=== PATIENT | female | born 1950 | race African-American/Black ===

== ENCOUNTER 2016-10-16 07:25 | Inpatient (IN) | payer OTHER ==
[2016-10-10 10:00] LABS: HEMATOCRIT 30.7 % (36.0-48.0); HEMOGLOBIN 9.8 g/dL (12.0-16.0)
[2016-10-10 10:26] LABS: BUN (BLOOD UREA NITROGEN) 29 MG/DL (6-23); CALCIUM, SERUM 8.7 MG/DL (8.5-10.4); CHLORIDE, SERUM 107 MMOL/L (96-112); CO2 (CARBON DIOXIDE) 28 MMOL/L (24-34); CREATININE 1.37 MG/DL (0.55-1.02); GFR AFRICAN AMERICAN 46 ML/MIN (>=60); GFR NON AFRICAN AMERICAN 40 ML/MIN (>=60); GLUCOSE, SERUM 104 MG/DL (60-99); POTASSIUM, SERUM 4.4 MMOL/L (3.5-5.3); SODIUM, SERUM 143 MMOL/L (135-148)
--- NOTE | ~2016-10-16 | PREOPHP ---
PreOp History and Physical [place] [id number] [facility] [place]. [address] NAME: JOSE NAGEL : 46 STATUS : ADM IN PAT#: [id number] AGE: 66 ADM/REG DATE : 10/16/16 MR#: [id number] REPORT SERV DATE: 10/16/16 DICTATED BY: BRANDON CHAPARRO DATE: 10/16/16 REPORT STATUS : Draft TRANSCRIBED BY: SHRUTHI DATE: 10/16/16 CHIEF COMPLAINT: Back pain and bilateral lower extremity pain, paresthesias, and weakness, right greater than left. HISTORY OF PRESENT ILLNESS: The patient is a 66-year-old with intractable back and lower extremity pain bilaterally. She feels weakness. Her legs will give out with walking, has difficulty with ambulating. After discussion of risks and benefits, she elected to proceed with surgical intervention. REVIEW OF SYSTEMS: She denies chest pain, shortness of breath, and bowel or bladder changes. ALLERGIES: DENIED. HOME MEDICATIONS: Include Advair, Amitiza, aspirin, Dexilant, digoxin, fluticasone, hydroxyzine, Neurontin, [place], omeprazole, oxybutynin, pravastatin, Symbicort, tolterodine tartrate, topiramate, valsartan, hydrochlorothiazide, Ventolin. FAMILY HISTORY: Noncontributory. PAST MEDICAL HISTORY: Osteoarthritis, rheumatoid arthritis, hypertension, depression, hypoglycemia, high cholesterol, osteoporosis, gastroesophageal reflux, asthma, and sleep apnea. PHYSICAL EXAMINATION: VITALS: Height 5 feet 3 inches, weight 246, BMI 43.6. GENERAL: Patient is healthy appearing, somewhat over ideal body weight. PSYCH: Alert and oriented x3. Normal mood and affect. Gait is antalgic, somewhat unsteady. VASCULAR: No extremity swelling. SPINE: Decreased motion. Well-healed previous microdiscectomy scar. HEART: Regular rate and rhythm. LUNGS: Clear to auscultation. ABDOMEN: Soft, nontender, nondistended with good bowel sounds. BREASTS: Deferred. RECTAL: Deferred. NEUROLOGIC: Strength is 4/5 for bilateral lower extremities diffusely. IMAGING: I have reviewed the preoperative imaging studies. She does have a dynamic instability with spondylolisthesis at L4-L5. She has L4-S1 disc disease and stenosis with recurrent disc herniation. ASSESSMENT: Lumbar radiculopathy, dynamic instability with spondylolisthesis L4-5, recurrent disc herniation and degenerative disc disease with stenosis, L4 through S1, failed conservative treatment. PLAN: The patient presents for surgical intervention. Consent was obtained. All questions PreOp History and Physical [address] [address] NAME: JOSE NAGEL : 48 STATUS : ADM IN PAT#: [id number] AGE: 66 ADM/REG DATE : 10/16/16 MR#: [id number] REPORT SERV DATE: 10/16/16 DICTATED BY: BRANDON CHAPARRO DATE: 10/16/16 REPORT STATUS : Draft TRANSCRIBED BY: MODL DATE: 10/16/16 answered. She is ready to proceed. YULIA/SHRUTHI Brandon Chaparro DO / [id number] CC: DO Karishma Coronado M.D.
--- NOTE | ~2016-10-16 | OP ---
Record Of Operation [facility] [address] [place]. [address] NAME: JOSE NAGEL : 46 STATUS : ADM IN PAT#: [id number] AGE: 66 ADM/REG DATE : 10/16/16 MR#: [id number] REPORT SERV DATE: 10/16/16 DICTATED BY: BRANDON CHAPARRO DATE: 10/16/16 REPORT STATUS : Draft TRANSCRIBED BY: MODL DATE: 10/16/16 DATE OF PROCEDURE: 10/16/2016 PREOPERATIVE DIAGNOSES: 1. L4-5 spondylolisthesis. 2. L4-S1 disk disease and stenosis. 3. Lumbar radiculopathy. POSTOPERATIVE DIAGNOSES: 1. L4-5 spondylolisthesis. 2. L4-S1 disk disease and stenosis. 3. Lumbar radiculopathy. PROCEDURES: 1. L4 through S1 open laminectomy and bilateral foraminotomies. 2. Decompression of L4-S1 nerve roots bilaterally. 3. L4-S1 posterolateral fusion bilaterally. 4. L4-S1 posterior segmental spinal instrumentation using Medtronic pedicle screws. 5. Local morcellized autograft and allograft bone matrix. 6. Neuromonitoring. 7. Intraoperative O-arm CT scan with computer navigation. SURGEON: Brandon Chaparro DO. ANESTHESIA: General. ESTIMATED BLOOD LOSS: 400 mL. COMPLICATIONS: None. INDICATIONS: The patient is a pleasant 66-year-old with intractable back and leg pain, failed multiple attempts at conservative treatment. After discussion of risks and benefits, elected to proceed with surgery. DESCRIPTION OF PROCEDURE: I identified the patient in the holding area. Consent was obtained. Went to the operating room. Underwent general anesthesia with endotracheal intubation. Prepped and draped in the usual sterile fashion. Operative safety pause was performed, then we proceeded. A midline longitudinal incision was made at L4-S1 taken down the fascial layer. Paraspinous muscle was subperiosteally elevated to the tips of the transverse processes. Self-retaining retractors were placed. O-arm registration frame was placed on the spinous process. O-arm was brought in for intraoperative CT scan. Computer registration materials were verified. Under computer guidance, pedicle screws from Medtronic were placed at L4 through S1 bilaterally. O-arm was brought back in to verify good placement of instrumentation. Rongeur was then used to remove the spinous processes and underlying lamina, Kerrison removed remaining lamina, performed foraminotomies L4 through S1. Partial facetectomy. The L4-S1 nerve roots were free of compression at the end Record Of Operation [address] [address] NAME: JOSE NAGEL : 48 STATUS : ADM IN PAT#: [id number] AGE: 66 ADM/REG DATE : 10/16/16 MR#: [id number] REPORT SERV DATE: 10/16/16 DICTATED BY: BRANDON CHAPARRO DATE: 10/16/16 REPORT STATUS : Draft TRANSCRIBED BY: MODL DATE: 10/16/16 of the case bilaterally. Rods were contoured to appropriate shape and length, placed over the screws L4-S1. Set screws were placed and final tightened. On the right side, distraction was applied across the screws to open the foramen where there was severe foraminal vertical height loss. A high-speed decorticating josh was used to decorticate the remaining bony surfaces L4 through S1. Irrigation was performed. Hemostasis was achieved. Local morcellized autograft and allograft bone matrix were packed over the decorticated surfaces L4 through S1 bilaterally. Subfascial drain was placed. A gram of vancomycin powder was sprinkled over the surgical wound. Layered closure was performed. Sterile dressings were applied. The patient was awoken and extubated, and taken to the recovery room in stable condition. OPERATIVE FINDINGS: L4-S1 disk disease and stenosis. No sustained neuromonitoring alerts. YULIA/SHRUTHI Brandon Chaparro DO / [id number] CC: Brandon Chaparro DO
--- NOTE | ~2016-10-16 | CN ---
Consultation Report [facility] [address] [place]. [address] NAME: JOSE NAGEL : 46 STATUS : ADM IN [facility]#: [id number] AGE: 66 ADM/REG DATE : 10/16/16 MR#: [id number] REPORT SERV DATE: 10/16/16 DICTATED BY: NEMESIO RIVERO DATE: 10/16/16 REPORT STATUS : Draft TRANSCRIBED BY: MODL DATE: 10/16/16 CONSULTATION DATE OF CONSULTATION: 10/16/2016 REASON FOR ADMISSION: L-spine surgery. REASON FOR CONSULTATION: Hypertension. HISTORY OF PRESENT ILLNESS: Ms. Nagel is a 66-year-old female with hypertension, rheumatoid arthritis, anemia, asthma, who had radiculopathy of the right lower extremity, found to have L5-S1 stenosis, was admitted for decompression. She had a three-hour operation under general anesthetic. Estimated blood loss of 400 mL. Vital signs are stable perioperatively. PACU course was unremarkable, but we were consulted for hypertension postoperatively. 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 She feels like the reticular pain in her leg is actually somewhat better than it was preoperatively. Denies any headache. No chest pain. No pulmonary complaints. No gastrointestinal complaints. No genitourinary complaints. No bleeding, history of hematochezia or melena. Joints are okay as well. Remainder of review of systems are negative. PAST MEDICAL HISTORY: As mentioned above. PAST SURGICAL HISTORY: Bilateral total knee arthroplasty in the past. MEDICATIONS: Include Diovan HCT, Protonix, Topamax, Dulera, Sanctura, Amitiza, Prevacid, Advair, Xolair, and albuterol. ALLERGIES: WASP VENOM. FAMILY HISTORY: Positive for COPD, cancer, or heart disease. SOCIAL HISTORY: The patient denies tobacco, alcohol, or drugs. PHYSICAL EXAMINATION: VITAL SIGNS: On presentation, blood pressure 106/72, pulse 58, respiration 14, afebrile, and O2 of 98% on exa. GENERAL: Awake, alert, and oriented x3. No apparent distress. HEENT: Pupils are equal and reactive to light. Extraocular movements are intact. No cranial nerve deficits. Moist mucous membranes. Normal oropharynx. NECK: Revealed no jugular venous distention, carotid bruits, lymphadenopathy, or goiter. CARDIAC: Regular rate and rhythm. No murmurs, gallops, or rubs. LUNGS: Clear to auscultation bilaterally with good respiratory excursion. ABDOMEN: Nondistended, nontender. Bowel sounds normoactive, but obese. Consultation Report [facility] [address] [facility] [place]. [address] NAME: JOSE NAGEL : 46 STATUS : ADM IN PAT#: [id number] AGE: 66 ADM/REG DATE : 10/16/16 MR#: [id number] REPORT SERV DATE: 10/16/16 DICTATED BY: NEMESIO RIVERO DATE: 10/16/16 REPORT STATUS : Draft TRANSCRIBED BY: SHRUTHI DATE: 10/16/16 EXTREMITIES: No cyanosis, clubbing, or edema. Good pulses and capillary refill. She had actually 5 out of 5 strength in bilateral lower extremities. Normal sensory function x4. SKIN: Warm and dry. PSYCHIATRIC: She is appropriate. LABORATORY EVALUATION: Sodium 144, potassium 3.9, chloride 110, bicarb 24, BUN 32, creatinine 1.5, glucose 139. White count 5.5, H and H of 8 and 26, platelets 175, MCV 82. Glucose 92-128. ASSESSMENT AND PLAN: 1. Status post lumbar spine per Dr. Lynn. We should be cautious of acute blood loss anemia on top of her prior microcytic anemia. She may very well require transfusion by tomorrow, and we anticipate iron infusion as well. We will guaiac her stools and determine a course for further evaluation if necessary. 2. Hypertension. Blood pressure is actually currently controlled. We should hold the hydrochlorothiazide while she is on IV fluids perioperatively. Otherwise continue present management. 3. Asthma, stable. Continue present management. 4. Rheumatoid arthritis. The patient has no joint deformities at all. I do not know if this is actually osteoarthritis. She is on no disease modifying antibiotic drugs. We will defer this care to Dr. Christie. Thank you very much. We appreciated the opportunity to assist in the care of this patient. We will follow along with you. KEANU/SHRUTHI Nemesio Rivero M.D. / [id number] CC: DO Karishma Coronado M.D.
--- NOTE | ~2016-10-16 | DS ---
Discharge Summary [facility] [address] [facility] [place]. [address] NAME: JOSE NAGEL : 46 STATUS : DIS IN PAT#: [id number] AGE: 66 ADM/REG DATE : 10/16/16 MR#: [id number] REPORT SERV DATE: 10/31/16 DICTATED BY: BRANDON LYNN DATE: 10/30/16 REPORT STATUS : Draft TRANSCRIBED BY: SHRUTHI DATE: 10/30/16 Data Collection from hospitalization DISCHARGE DIAGNOSES: 1. L4-5 spondylolisthesis. 2. L4-S1 disk disease and stenosis. 3. Lumbar radiculopathy. 4. Hypertension. 5. History of hypoglycemia. 6. Osteoarthritis. 7. Rheumatoid arthritis. 8. Depression. 9. Hypercholesterolemia. 10.Osteoporosis. 11.Gastroesophageal reflux. 12.Asthma. 13.Sleep apnea. CONSULTATIONS: Michelet Magaña M.D. PROCEDURES PERFORMED: L4 through S1 open laminectomy and bilateral foraminotomies, decompression of L4-S1 nerve roots bilaterally, L4-S1 posterolateral fusion bilaterally, L4- S1 posterior segmental spinal instrumentation using Medtronic pedicle screws, local morselized autograft and allograft bone matrix, neuromonitoring, intraoperative O-arm CT scan with computer navigation on 10/16/2016. PATHOLOGY: Lumbar spine repair - fragmented bone cartilage and soft tissue. No evidence was seen of an infectious or neoplastic process. MEDICATIONS: Ventolin two puffs via inhaler as needed, aspirin 325 mg every morning, Flexeril 10 mg every eight hours as needed, EpiPen 0.3 mg IM as needed, Flonase nasal spray two sprays nasally every morning, Advair Diskus one puff via inhaler twice a day, Prevacid 30 mg before breakfast, Amitiza 24 mcg twice a day as needed, Dulera two puffs via inhaler twice a day as needed, Xolair 150 mg subcutaneously every two weeks, Percocet 5/325 one to two tablets every four hours as needed, Detrol LA 4 mg every morning, Topamax 75 mg at bedtime, and Diovan one tablet every morning. CONDITION AT DISCHARGE: Stable. DISPOSITION: The patient was discharged home to be followed by home health care on a regular diet with protein shakes at mealtime and activities as instructed. She would follow up with me two weeks following discharge. HOSPITAL COURSE: This is a 66-year-old female who had intractable back and lower extremity pain bilaterally. She felt weakness. Her legs will give out with walking and she had difficulty ambulating. Treatment options were discussed and it was elected to proceed with surgical intervention. She was admitted to the hospital at this time for further evaluation and treatment. Discharge Summary [place] [id number] [facility] [address] NAME: JOSE NAGEL : 46 STATUS : DIS IN PAT#: [id number] AGE: 66 ADM/REG DATE : 10/16/16 MR#: [id number] REPORT SERV DATE: 10/31/16 DICTATED BY: BRANDON LYNN DATE: 10/30/16 REPORT STATUS : Draft TRANSCRIBED BY: SHRUTHI DATE: 10/30/16 Upon admission, she was taken to the operating room where she underwent the above-mentioned procedure. She tolerated this well, and there were no complications. Postoperatively, she was seen by Dr. Michelet Magaña regarding hypertension. Her blood pressure was currently controlled. Hydrochlorothiazide would be held while she was on IV fluids perioperatively. We were going to be cautious of acute blood loss anemia on top of her prior microcytic anemia. It was felt that she may require transfusion. On postop day #1, her pain was controlled. She was evaluated by Physical Therapy. The Mullins catheter and [employer]CRETE [employer]M [employer]TER [employer] FINISHER were discontinued. She said she was feeling better. IV iron was given. On 10/18/2016, she complained of being lightheaded. She had some slight shortness of breath. Her pain was controlled. We transfused one unit of packed red blood cells. Over the next couple of days, she denied any new complaints. Creatinine remained stable at 1.43. Discharge planning was performed. Her anemia had improved. Protonix was continued as well as Dulera. Valsartan was continued. We encouraged her to mobilize with Physical Therapy. She continued to progress. On 10/22/2016, she was alert and cooperative. Discharge instructions were given. Due to her improved and stable condition, she was discharged home to be followed by home health care with the above-stated instructions. Information collected by: Linda Rivera I submit the above information as my discharge summary. ZAK/SHRUTHI Brandon Lynn DO / [id number] CC: DO Karishma Coronado M.D.
[~2016-10-16 07:25] MED LIST: ACCUNEB INH; ADVAIR INH; ADVIL PO; ALBUTEROL NEBULIZER INH; AMITIZA24 PO; AMITIZA8 MCG PO; ASA5GR PO; AT25 PO; BYSTOLIC10 MG PO; COREG6 PO; DETROLLA4 PO; DIOV160 PO; DIOVAN HCT160 MG/25 PO; DULERA 200 MCG/13 GM INH; EPIPEN0.3 IM; FIBER GUMMY PO; FLONASE NAS; FORTAMET500 MG PO; KAPIDEX60 MG PO; LEXAPRO10 PO; LORTAB 5 PO; MAXIMUM D3 PO; MULTI-VIT/F1 PO; NEBULIZER SOLUTION INH; NORCO1 TA2 PO; PRADAXA150 MG PO; PRAV10 PO; PREV30 PO; PROAIR HFA INH; RAZADYNE4 PO; TOPAMAX25 PO; TOVIAZ4 MG PO; VENTOLIN HFA INH; XOLAIR SC; ZOLAIR SQ
[2016-10-16 12:46] LABS: BASOPHILS 0.2 %; BASOPHILS ABSOLUTE 0.01 10/3/uL (0.0-0.16); EOSINOPHILS ABSOLUTE 0.11 10/3/uL (0.0-0.53); HEMATOCRIT 25.9 % (36.0-48.0); IMMATURE GRANULOCYTES 0.7 %; IMMATURE GRANULOCYTES ABSOLUTE 0.04 10/3/uL (0.0-0.11); LYMPHOCYTES 16.7 %; LYMPHOCYTES ABSOLUTE 0.92 10/3/uL (0.67-4.30); MANUAL DIFF NO %; MEAN CORPUS HGB CONC 30.9 g/dL (32.0-36.0); MEAN CORPUSCULAR HEMOGLOB 25.5 pg (26.0-34.0); MEAN CORPUSCULAR VOLUME 82.5 fL (80-100); MEAN PLATELET VOLUME 10.8 fL (9.2-13.0); MONOCYTES ABSOLUTE 0.11 10/3/uL (0.21-1.20); NEUTROPHILS 78.4 %; NEUTROPHILS ABSOLUTE 4.31 10/3/uL (2.02-8.40); PLATELET COUNT 175 10/3/uL (150-400); RBC DISTRIBUTION WIDTH 16.9 % (12.0-16.0); RED CELL COUNT 3.14 10/6/uL (4.0-5.6); WHITE BLOOD CELLS 5.5 10/3/uL (4.5-10.5)
[2016-10-16 13:08] LABS: BUN (BLOOD UREA NITROGEN) 32 MG/DL (6-23); CALCIUM, SERUM 8.2 MG/DL (8.5-10.4); CHLORIDE, SERUM 110 MMOL/L (96-112); CO2 (CARBON DIOXIDE) 24 MMOL/L (24-34); CREATININE 1.53 MG/DL (0.55-1.02); GFR AFRICAN AMERICAN 40 ML/MIN (>=60); GFR NON AFRICAN AMERICAN 35 ML/MIN (>=60); POTASSIUM, SERUM 3.9 MMOL/L (3.5-5.3); SODIUM, SERUM 144 MMOL/L (135-148)
[2016-10-16 13:09] LABS: GLUCOSE, SERUM 139 MG/DL (60-99)
[2016-10-17 05:12] LABS: HEMATOCRIT 25.1 % (36.0-48.0); HEMOGLOBIN 8.1 g/dL (12.0-16.0); MEAN CORPUS HGB CONC 32.3 g/dL (32.0-36.0); MEAN CORPUSCULAR HEMOGLOB 26.6 pg (26.0-34.0); MEAN CORPUSCULAR VOLUME 82.3 fL (80-100); MEAN PLATELET VOLUME 11.9 fL (9.2-13.0); PLATELET COUNT 191 10/3/uL (150-400); RBC DISTRIBUTION WIDTH 16.6 % (12.0-16.0); RED CELL COUNT 3.05 10/6/uL (4.0-5.6); WHITE BLOOD CELLS 6.8 10/3/uL (4.5-10.5)
[2016-10-17 05:14] LABS: MANUAL DIFF YES %
[2016-10-17 05:58] LABS: % IRON SAT 19 % (20-50); CALCIUM, SERUM 8.5 MG/DL (8.5-10.4); CHLORIDE, SERUM 108 MMOL/L (96-112); CO2 (CARBON DIOXIDE) 25 MMOL/L (24-34); CREATININE 1.35 MG/DL (0.55-1.02); FERRITIN 86 NG/ML (8-252); GFR AFRICAN AMERICAN 47 ML/MIN (>=60); GFR NON AFRICAN AMERICAN 40 ML/MIN (>=60); GLUCOSE, SERUM 133 MG/DL (60-99); IRON BINDING CAPACITY 197 MCG/DL (225-410); IRON, SERUM 37 MCG/DL (35-150); POTASSIUM, SERUM 4.4 MMOL/L (3.5-5.3); SODIUM, SERUM 142 MMOL/L (135-148)
[2016-10-17 06:02] LABS: BUN (BLOOD UREA NITROGEN) 26 MG/DL (6-23)
[2016-10-17 06:10] LABS: BAND NEUTROPHILS 1 %; LYMPHOCYTES 14 %; LYMPHOCYTES ABSOLUTE (CALC) 0.95 10/3/uL (0.67-4.30); MONOCYTES 9 %; MONOCYTES ABSOLUTE (CALC) 0.61 10/3/uL (0.21-1.20); NEUTROPHILS ABSOLUTE (CALC) 5.24 10/3/uL (2.02-8.40); PLATELET ESTIMATE ADQ (ADEQUATE); RBC MORPHOLOGY NORM (NORMAL); SEGMENTED NEUTROPHIL (0) 76 %; TOTAL NUCLEATED CELLS 100
[2016-10-18 05:01] LABS: BASOPHILS 0.2 %; BASOPHILS ABSOLUTE 0.01 10/3/uL (0.0-0.16); EOSINOPHILS 3.6 %; EOSINOPHILS ABSOLUTE 0.21 10/3/uL (0.0-0.53); HEMATOCRIT 22.9 % (36.0-48.0); HEMOGLOBIN 7.4 g/dL (12.0-16.0); LYMPHOCYTES 29.8 %; LYMPHOCYTES ABSOLUTE 1.74 10/3/uL (0.67-4.30); MEAN CORPUS HGB CONC 32.3 g/dL (32.0-36.0); MEAN CORPUSCULAR HEMOGLOB 26.9 pg (26.0-34.0); MEAN CORPUSCULAR VOLUME 83.3 fL (80-100); MEAN PLATELET VOLUME 11.1 fL (9.2-13.0); MONOCYTES 11.8 %; MONOCYTES ABSOLUTE 0.69 10/3/uL (0.21-1.20); NEUTROPHILS 54.6 %; NEUTROPHILS ABSOLUTE 3.19 10/3/uL (2.02-8.40); PLATELET COUNT 157 10/3/uL (150-400); RBC DISTRIBUTION WIDTH 16.8 % (12.0-16.0); RED CELL COUNT 2.75 10/6/uL (4.0-5.6); WHITE BLOOD CELLS 5.8 10/3/uL (4.5-10.5)
[2016-10-18 05:12] LABS: MANUAL DIFF NO %
[2016-10-19 05:59] LABS: BASOPHILS 0.3 %; BASOPHILS ABSOLUTE 0.02 10/3/uL (0.0-0.16); EOSINOPHILS 6.7 %; EOSINOPHILS ABSOLUTE 0.49 10/3/uL (0.0-0.53); HEMOGLOBIN 8.3 g/dL (12.0-16.0); IMMATURE GRANULOCYTES 0.1 %; IMMATURE GRANULOCYTES ABSOLUTE 0.01 10/3/uL (0.0-0.11); LYMPHOCYTES 24.4 %; LYMPHOCYTES ABSOLUTE 1.78 10/3/uL (0.67-4.30); MEAN CORPUS HGB CONC 31.3 g/dL (32.0-36.0); MEAN CORPUSCULAR VOLUME 83.1 fL (80-100); MEAN PLATELET VOLUME 11.2 fL (9.2-13.0); MONOCYTES 12.2 %; MONOCYTES ABSOLUTE 0.89 10/3/uL (0.21-1.20); NEUTROPHILS 56.3 %; NEUTROPHILS ABSOLUTE 4.12 10/3/uL (2.02-8.40); PLATELET COUNT 183 10/3/uL (150-400); RBC DISTRIBUTION WIDTH 16.9 % (12.0-16.0); RED CELL COUNT 3.19 10/6/uL (4.0-5.6); WHITE BLOOD CELLS 7.3 10/3/uL (4.5-10.5)
[2016-10-19 06:02] LABS: HEMATOCRIT 26.5 % (36.0-48.0); MANUAL DIFF NO %
[2016-10-19 06:18] LABS: BUN (BLOOD UREA NITROGEN) 28 MG/DL (6-23); CALCIUM, SERUM 8.4 MG/DL (8.5-10.4); CHLORIDE, SERUM 109 MMOL/L (96-112); CO2 (CARBON DIOXIDE) 25 MMOL/L (24-34); CREATININE 1.43 MG/DL (0.55-1.02); GFR AFRICAN AMERICAN 44 ML/MIN (>=60); GFR NON AFRICAN AMERICAN 38 ML/MIN (>=60); GLUCOSE, SERUM 108 MG/DL (60-99); POTASSIUM, SERUM 4.4 MMOL/L (3.5-5.3); SODIUM, SERUM 143 MMOL/L (135-148)
[2016-10-19 07:17] LABS: HYPOCHROMIA 1+ (3-10/OIF) (0-2/OIF); PLATELET ESTIMATE ADQ (ADEQUATE)
[2016-10-20 06:25] LABS: HEMOGLOBIN 8.4 g/dL (12.0-16.0)
[2016-10-21 05:07] LABS: HEMATOCRIT 27.2 % (36.0-48.0); HEMOGLOBIN 8.5 g/dL (12.0-16.0)
[2016-10-21 05:09] LABS: BUN (BLOOD UREA NITROGEN) 34 MG/DL (6-23); CALCIUM, SERUM 8.5 MG/DL (8.5-10.4); CHLORIDE, SERUM 105 MMOL/L (96-112); CO2 (CARBON DIOXIDE) 27 MMOL/L (24-34); CREATININE 1.57 MG/DL (0.55-1.02); GFR AFRICAN AMERICAN 39 ML/MIN (>=60); GFR NON AFRICAN AMERICAN 34 ML/MIN (>=60); GLUCOSE, SERUM 95 MG/DL (60-99); POTASSIUM, SERUM 4.3 MMOL/L (3.5-5.3); SODIUM, SERUM 142 MMOL/L (135-148)
[2016-10-22] MEDS ORDERED: FLEX PO (13:21)
[2016-10-22] MEDS ORDERED: PCET PO (13:21)
== END 2016-10-22 18:27 | disposition home health service (06) | DRG 460 ==
LOC: SDC/OF 07:25 → PACU 12:27 → 3SO 13:53
PROVIDERS: Nurse Practitioner Adult Health; Orthopaedic Surgery
PROC: 4A11X4G Monitoring of Peripheral Nervous Electrical Activity, Intraoperative, External Approach (ICD-10-PCS; 2016-10-16)
PROC: 0SG0071 Fusion of Lumbar Vertebral Joint with Autologous Tissue Substitute, Posterior Approach, Posterior Column, Open Approach (ICD-10-PCS; principal; 2016-10-16 09:00)
PROC: 0SG3071 Fusion of Lumbosacral Joint with Autologous Tissue Substitute, Posterior Approach, Posterior Column, Open Approach (ICD-10-PCS; 2016-10-16 09:00)
DX: M51.16 Intervertebral disc disorders with radiculopathy, lumbar region (principal); D62 Acute posthemorrhagic anemia; I12.9 Hypertensive chronic kidney disease with stage 1 through stage 4 chronic kidney disease, or unspecified chronic kidney disease; N18.9 Chronic kidney disease, unspecified; J45.909 Unspecified asthma, uncomplicated; K21.9 Gastro-esophageal reflux disease without esophagitis
CPT/HCPCS: 36415; 80048; 82607; 82728; 82962; 83540; 83550; 85014; 85018; 85025; 86850; 86900; 86901; 86920; 88304; 88311; 94640; 97116-GP; 97161-GP; A9270-GY; C1713; C1776; J0330; J0690; J1644; J1750; J2250; J2270; J2370; J2405; J2550; J2710; J3010; J3370; P9016